=== PATIENT | male | born 1970 | race Caucasian/White ===

== ENCOUNTER 2022-01-11 14:58 | Outpatient (RCR) | payer OTHER | END 2022-01-28 | disposition home or self-care (01) | LOC: PT | DX: M54.9 Dorsalgia, unspecified (principal) ==

== ENCOUNTER 2022-02-04 15:29 | Outpatient (RCR) | payer OTHER | END 2022-02-28 | disposition home or self-care (01) | LOC: PT | DX: M54.9 Dorsalgia, unspecified (principal) ==

== ENCOUNTER 2022-03-02 07:56 | Outpatient (RCR) | payer OTHER | END 2022-03-30 14:21 | disposition still patient (30) | LOC: PT 07:56 | DX: M54.9 Dorsalgia, unspecified (principal) ==